=== PATIENT | male | born 1990 | race Caucasian/White ===

== ENCOUNTER → 2018-02-16 01:25 | Outpatient (CLI) | payer OTHER, SELFPAY | PROVIDERS: PCP Emergency Medicine; Visit Provider Emergency Medicine | DX: J40 Bronchitis, not specified as acute or chronic (principal) ==

== ENCOUNTER → 2018-04-12 19:30 | Outpatient (CLI) | payer OTHER, SELFPAY | PROVIDERS: PCP Emergency Medicine; Visit Provider Emergency Medicine | DX: K08.89 Other specified disorders of teeth and supporting structures (principal) ==

== ENCOUNTER 2018-11-05 21:20 | Outpatient (CLI) | payer OTHER, SELFPAY ==
[2018-11-05 21:42] VITALS: BMI 29.9
== END 2018-11-05 21:55 | disposition home or self-care (01) ==
LOC: INF 21:21
PROVIDERS: PCP Emergency Medicine; Visit Provider Emergency Medicine
DX: J01.90 Acute sinusitis, unspecified (principal)

== ENCOUNTER → 2019-05-01 11:51 | Outpatient (CLI) | payer OTHER, SELFPAY ==
--- NOTE | 2019-05-01 11:56 | XR_ITS ---
PROCEDURE: XR ELBOW RT MIN 3V CLINICAL INDICATION: R Elbow Pain COMPARISON: No exams were available for comparison FINDINGS: No fracture or dislocation. No lytic or blastic change. There is normal mineralization. The joint spaces are well-preserved. No significant degenerative/arthritic changes. No erosive changes evident. Other findings:None. IMPRESSION: No acute findings. Dictated by: Theodore Alatorre MD 05/01/2019 18:02 Electronically signed by Theodore Alatorre MD in [place] 05/01/2019 18:02
== END ==
PROVIDERS: PCP Nurse Practitioner Family; Visit Provider Nurse Practitioner Family
DX: M25.521 Pain in right elbow (principal)
CPT/HCPCS: 73080

== ENCOUNTER → 2019-06-25 10:31 | Outpatient (CLI) | payer OTHER, SELFPAY ==
--- NOTE | 2019-06-25 10:31 | MR_ITS ---
PROCEDURE: MR ELBOW RT WO CON CLINICAL INDICATION: right elbow injury Right elbow pain, posterior elbow pain. COMPARISON: XR ELBOW RT MIN 3V from 05/01/2019 TECHNIQUE: Routine multiplanar multi echo sequences are performed without gadolinium enhancement. FINDINGS: No abnormal bone marrow edema that would indicate fracture or contusion. The ulnar collateral ligament and lateral collateral ligaments appears intact. There is slight edema with increased T2 signal involving the common extensor tendon suggesting lateral epicondylitis. The common flexor tendon has an unremarkable appearance. The biceps tendon appears intact. The triceps tendon has an abnormal appearance distally at its insertion on the olecranon. The tendon fibers are ill-defined with some heterogeneous increased T1 and T2 signal. Tendinopathy/tendinosis or partial tear is considered. A complete tear is not felt to be present as there does appear to be some intact fibers both anteriorly and posteriorly. IMPRESSION: 1. Findings compatible with lateral epicondylitis 2. Abnormal signal of the distal aspect of the triceps tendon suggesting tendinopathy/tendinosis and/or partial tear Dictated by: Theodore Alatorre MD 06/27/2019 11:09 Electronically signed by Theodore Alatorre MD in [place] 06/27/2019 11:09
== END ==
PROVIDERS: PCP Emergency Medicine; Visit Provider Orthopaedic Surgery
DX: S59.901D Unspecified injury of right elbow, subsequent encounter (principal)
CPT/HCPCS: 73221

== ENCOUNTER → 2019-10-15 22:34 | Outpatient (CLI) | payer OTHER, SELFPAY ==
[2019-10-17 12:24] LABS: Rubella Antibodies, IgG <0.90 index (Immune >0.99); Rubella Antibodies, IgM <20.0 AU/mL (0.0-19.9)
== END ==
PROVIDERS: PCP Emergency Medicine; Visit Provider Emergency Medicine
DX: Z01.84 Encounter for antibody response examination (principal)
CPT/HCPCS: 86762

== ENCOUNTER → 2019-10-16 04:37 | Outpatient (CLI) | payer OTHER, SELFPAY | PROVIDERS: PCP Emergency Medicine; Visit Provider Emergency Medicine | DX: Z03.818 Encounter for observation for suspected exposure to other biological agents ruled out (principal) | CPT/HCPCS: U0003 ==

== ENCOUNTER → 2019-10-24 13:10 | Outpatient (CLI) | payer OTHER, SELFPAY ==
[2019-10-25 13:10] LABS: Covid-19 Nasal PCR Sendout Lex Not Detected
== END ==
PROVIDERS: PCP Emergency Medicine; Visit Provider Internal Medicine Adolescent Medicine
DX: Z03.818 Encounter for observation for suspected exposure to other biological agents ruled out (principal)
CPT/HCPCS: U0004

== ENCOUNTER → 2019-12-06 00:56 | Outpatient (CLI) | payer OTHER, SELFPAY ==
[2019-12-06 01:13] VITALS: BMI 30.7
[2019-12-06 01:25] VITALS: BP 141/91; PULSE 80; RESP 16; TEMP 36.7; O2SAT 98
== END ==
PROVIDERS: PCP Emergency Medicine; Visit Provider Emergency Medicine
DX: J32.9 Chronic sinusitis, unspecified (principal)
CPT/HCPCS: 96372

== ENCOUNTER → 2020-01-22 06:28 | Outpatient (CLI) | payer OTHER, SELFPAY ==
[2020-01-22 21:24] LABS: Covid-19 Nasal PCR Sendout Lex Not Detected
== END ==
PROVIDERS: PCP Emergency Medicine; Visit Provider Emergency Medicine
DX: Z03.818 Encounter for observation for suspected exposure to other biological agents ruled out (principal)
CPT/HCPCS: U0004